=== PATIENT | female | born 1945 | race Caucasian/White ===

== ENCOUNTER → 2020-12-15 | Outpatient (CLI) | payer MEDICARE, OTHER ==
[~2020-12-15] VITALS: Ht 185.4 cm; Wt 96.0 kg
[2020-12-15] VITALS (7 sets, daily range): BP systolic 129–150; BP diastolic 58–67
[~2020-12-15] MED LIST: aminophylline 250mg/10ml inj. IV ONE; regadenoson 0.4mg/5ml syringe IV ONE
== END | disposition home or self-care (01) ==
LOC: RAD 09:06
PROVIDERS: ATTEND Internal Medicine Cardiovascular Disease
DX: I36.1 Nonrheumatic tricuspid (valve) insufficiency (principal); I10 Essential (primary) hypertension; I63.9 Cerebral infarction, unspecified
CPT/HCPCS: 78452; 93017; 93306; A9500; J0280; J2785